=== PATIENT | male | born 1970 | race Caucasian/White ===

== ENCOUNTER 2017-03-09 15:08 | Emergency (ER) | payer BC, OTHER ==
[2017-03-09] MEDS ORDERED: NORMAL SALINE 1000 ML 1,000 ML IV ONE ×3 (15:58→17:07)
--- NOTE | 2017-03-09 16:00 | ER Document Report ---
ED Medical Screen (RME) - General Chief Complaint: High Blood Sugar Stated Complaint: BLOOD SUGAR PROBLEM Time Seen by Provider: 03/09/17 15:58 Mode of Arrival: Ambulatory Information source: Patient Notes: This is a 46-year-old previously healthy male who presents with high blood sugar. He states that he was at [facility] and decided to do a health screening. As part of this health screening he had his blood sugar checked and was told that it was 499 and that he should go to the emergency department. He feels generally well today although a little tired. He denies any abdominal pain or vomiting. He does report some polydipsia and polyuria over the past few weeks. No fevers or chills. I have greeted and performed a rapid initial assessment of this patient. A comprehensive ED assessment and evaluation of the patient, analysis of test results and completion of the medical decision making process will be conducted by additional ED providers. TRAVEL OUTSIDE OF THE [place] IN LAST 30 DAYS: No - Related Data Allergies/Adverse Reactions: No Known Allergies Allergy (Verified 03/09/17 15:16) Past Medical History Renal/ Medical History: Denies: Hx Peritoneal Dialysis Physical Exam - Vital signs Vitals: Temp Pulse Resp BP Pulse Ox 97.7 F 113 H 18 129/84 H 96 03/09/17 15:16 03/09/17 15:16 03/09/17 15:16 03/09/17 15:16 03/09/17 15:16 Course - Vital Signs Vital signs: Temp Pulse Resp BP Pulse Ox 97.7 F 113 H 18 129/84 H 96 03/09/17 15:16 03/09/17 15:16 03/09/17 15:16 03/09/17 15:16 03/09/17 15:16 - Laboratory Laboratory results interpreted by me: 03/09/17 15:19 POC Glucose 530 H*
--- NOTE | 2017-03-09 16:32 | ER Document Report ---
ED Blood Sugar Problem - General Chief Complaint: High Blood Sugar Stated Complaint: BLOOD SUGAR PROBLEM Time Seen by Provider: 03/09/17 15:58 Mode of Arrival: Ambulatory Information source: Patient Notes: Patient is a 46-year-old male who presents to the ER today for elevated blood sugar reading when he went to get labs done earlier today. Patient has no past medical history, but has been dealing with bilateral foot pain, burning, numbness over the past year and has been seeing podiatry who have him in orthopedic shoes, these have not been helping. He denies any nausea, vomiting, abdominal pain. He states that he just been feeling fatigued. TRAVEL OUTSIDE OF THE [place] IN LAST 30 DAYS: No - Related Data Allergies/Adverse Reactions: No Known Allergies Allergy (Verified 03/09/17 15:16) Home Medications: Current Home Medications Meloxicam [Mobic] 03/09/17 [History] Past Medical History - General Information source: Patient - Social History Smoking Status: Unknown if Ever Smoked Family History: Reviewed & Not Pertinent Patient has suicidal ideation: No Patient has homicidal ideation: No Renal/ Medical History: Denies: Hx Peritoneal Dialysis Review of Systems - Review of Systems Constitutional: No symptoms reported EENT: No symptoms reported Cardiovascular: No symptoms reported Respiratory: No symptoms reported Gastrointestinal: No symptoms reported Genitourinary: No symptoms reported Male Genitourinary: No symptoms reported Musculoskeletal: No symptoms reported Skin: No symptoms reported Hematologic/Lymphatic: No symptoms reported Neurological/Psychological: No symptoms reported Physical Exam - Vital signs Vitals: Temp Pulse Resp BP Pulse Ox 97.7 F 113 H 18 129/84 H 96 03/09/17 15:16 03/09/17 15:16 03/09/17 15:16 03/09/17 15:16 03/09/17 15:16 - Notes Notes: PHYSICAL EXAMINATION: GENERAL: Well-appearing and in no acute distress. HEAD: Atraumatic, normocephalic. EYES: Pupils equal round and reactive to light, extraocular movements intact, sclera anicteric, conjunctiva are normal. NECK: Normal range of motion, supple without lymphadenopathy LUNGS: CTAB and equal. No wheezes rales or rhonchi. HEART: Regular rate and rhythm without murmurs ABDOMEN: Soft, no tenderness. No guarding, no rebound BACK: no vertebral tenderness, normal ROM GI/: no CVA tenderness EXTREMITIES: Normal range of motion, no pitting edema. No cyanosis. NEUROLOGICAL: Cranial nerves grossly intact. Normal sensory/motor exams. PSYCH: Normal mood, normal affect. SKIN: Warm, Dry, normal turgor, no rashes or lesions noted Course - Re-evaluation Re-evalutation: 03/09/17 17:10 Serum glucose is 510, however the rest of his labs look great, potassium is normal, anion gap is normal with normal, he looks great, no nausea no vomiting afebrile, pleasant and smiling. 03/09/17 18:24 Pt glucose came down to 332 with only fluids, insulin ordered, pt can be discharged, he looks great and has normal labwork otherwise. Sending him home with gabapentin and metformin. - Vital Signs Vital signs: Temp Pulse Resp BP Pulse Ox 97.7 F 84 17 134/85 H 97 03/09/17 15:16 03/09/17 18:55 03/09/17 18:55 03/09/17 18:55 03/09/17 18:55 - Laboratory Result Diagrams: 03/09/17 16:20 03/09/17 16:20 Laboratory results interpreted by me: 03/09/17 03/09/17 03/09/17 15:19 16:20 16:20 RBC 5.74 H Sodium 133.6 L Glucose 510 H* POC Glucose 530 H* Alkaline Phosphatase 155 H Urine Glucose (UA) 03/09/17 03/09/17 17:18 17:48 RBC Sodium Glucose POC Glucose 332 H Alkaline Phosphatase Urine Glucose (UA) >=500 H Discharge - Discharge Clinical Impression: Diabetes mellitus type 2, uncontrolled Qualifiers: Diabetes mellitus complication status: without complication 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 Follow up with primary care provider, call tomorrow to make followup appointment. Prescriptions: Blood Sugar Diagnostic [Glucose Test Strip] 1 each MC DAILY #30 strip Blood-Glucose Meter, Drum-Type [Accu-Chek] 1 each MC DAILY #1 kit Gabapentin 300 mg PO TID #30 capsule Lancets [Accu-Chek] 1 each MC DAILY #30 each Metformin HCl 500 mg PO BID #30 tablet Referrals: DANIELLE SANTIZO MD [ACTIVE STAFF] - Follow up as needed
[2017-03-09 16:33] LABS: ABSOLUTE BASOPHILS # (AUTO) 0.1 10^3/uL (0.0-0.2); ABSOLUTE EOSINOPHILS # (AUTO) 0.1 10^3/uL (0.0-0.6); ABSOLUTE LYMPHOCYTES (AUTO) 1.9 10^3/uL (0.5-4.7); ABSOLUTE MONOCYTES (AUTO) 0.6 10^3/uL (0.1-1.4); ABSOLUTE NEUT (AUTO) 4.4 10^3/uL (1.7-8.2); EOSINOPHILS % (AUTO) 1.5 % (0-6); HEMATOCRIT 49.1 % (37.9-51.0); HEMOGLOBIN 16.5 g/dL (13.5-17.0); HGB HCT DIFFERENCE 0.4; LYMPHOCYTES % (AUTO) 26.3 % (13-45); MEAN CORPUSCULAR HEMOGLOBIN 28.8 pg (27.0-33.4); MEAN CORPUSCULAR HGB CONC 33.6 g/dL (32.0-36.0); MEAN CORPUSCULAR VOLUME 86 fl (80-97); MONOCYTES % (AUTO) 8.5 % (3-13); RED BLOOD COUNT 5.74 10^6/uL (4.35-5.55); RED CELL DISTRIBUTION WIDTH 12.5 % (11.5-14.0); SEGMENTED NEUTROPHILS % (AUTO) 62.7 % (42-78); WHITE BLOOD COUNT 7.1 10^3/uL (4.0-10.5)
[2017-03-09 16:45] LABS: ALANINE AMINOTRANSFERASE 29 U/L (21-72); ALBUMIN 4.2 g/dL (3.5-5.0); ALKALINE PHOSPHATASE 155 U/L (38-126); ANION GAP 13 (5-19); ASPARTATE AMINO TRANSFERASE 21 U/L (17-59); BILIRUBIN,DIRECT 0.4 mg/dL (0.0-0.4); BILIRUBIN,TOTAL 0.9 mg/dL (0.2-1.3); BLOOD UREA NITROGEN 20 mg/dL (7-20); CALCIUM 9.5 mg/dL (8.4-10.2); CARBON DIOXIDE 22 mmol/L (22-30); CHLORIDE 99 mmol/L (98-107); POTASSIUM 4.9 mmol/L (3.6-5.0); SODIUM 133.6 mmol/L (137-145); TOTAL PROTEIN 7.2 g/dL (6.3-8.2)
[2017-03-09 16:56] LABS: GLUCOSE 510 mg/dL (75-110)
[2017-03-09] MEDS ORDERED: INSULIN REG, HUMAN 100 UNIT/ML 3 ML VIAL (PYX) IV ONE ×3 (17:01→18:23)
[2017-03-09 17:05] LABS: VENOUS BLOOD BASE EXCESS 1.4 mmol/L; VENOUS BLOOD HCO3 27.5 mmol/L (20-32); VENOUS BLOOD PCO2 49.2 mmHg (35-63); VENOUS BLOOD PH 7.37 (7.30-7.42)
[2017-03-09] MEDS ORDERED: GABAPENTIN 300 MG CAPSULE PO ONE (17:09)
[2017-03-09 17:41] LABS: APPEARANCE,URINE CLEAR; BILIRUBIN,URINE NEGATIVE (NEGATIVE); GLUCOSE, URINE >=500 mg/dL (NEGATIVE); KETONES,URINE NEGATIVE (NEGATIVE); LEUKOCYTE ESTERASE,URINE NEGATIVE (NEGATIVE); NITRITE,URINE NEGATIVE (NEGATIVE); PROTEIN,URINE NEGATIVE (NEGATIVE); URINE SPECIFIC GRAVITY 1.033; UROBILINOGEN,URINE NEGATIVE mg/dL (<2.0)
[2017-03-09] MEDS ORDERED: METFORMIN HCL 500 MG TABLET PO ONE (18:24)
[2017-03-09 19:07] VITALS: BP 134/85
== END 2017-03-09 18:55 | disposition home or self-care (01) ==
LOC: ER 15:08
DX: E11.65 Type 2 diabetes mellitus with hyperglycemia (principal); M79.671 Pain in right foot; M79.672 Pain in left foot; R20.0 Anesthesia of skin; R53.83 Other fatigue
CPT/HCPCS: 99284; 96360; 36415; 82962; 85025; 80053; 81001; 83036; 82803; J1815; J7030